=== PATIENT | female | born 1970 | race Caucasian/White ===

== ENCOUNTER 2017-06-11 10:57 | Outpatient (CLI) | payer OTHER | END 2017-06-11 10:58 | disposition home or self-care (01) | LOC: DI 10:57 | PROVIDERS: ATTEND Nurse Practitioner Primary Care | DX: R01.1 Cardiac murmur, unspecified (principal); I51.7 Cardiomegaly | CPT/HCPCS: 93306 ==

== ENCOUNTER 2021-10-01 08:00 | Outpatient (CLI) | payer OTHER | END 2021-10-01 23:59 | disposition home or self-care (01) | LOC: LAB 08:00 | PROVIDERS: ATTEND Physician Assistant | DX: N39.0 Urinary tract infection, site not specified (principal) | CPT/HCPCS: 87077; 87086; 87181 ==